=== PATIENT | male | born 1975 | race Caucasian/White ===

== ENCOUNTER → 2017-01-03 | Day surgery (SDC) | payer OTHER ==
[2017-01-01 15:13] LABS: HCT 40.2 % (42.0-52.0); MCHC 34.8 g/dL (32.0-36.0); MCV 86.3 fL (78.0-100.0); RBC 4.66 M/uL (4.70-6.00); RDW 12.8 % (11.5-14.0); WBC 6.4 K/uL (4.0-10.5)
[2017-01-01 15:27] LABS: ALBUMIN 4.1 g/dL (3.5-5.0); BILIRUBIN - TOTAL 0.7 mg/dL (0.1-1.0); CREATININE 0.8 mg/dL (0.7-1.2); GLOBULIN (CALCULATION) 2.9 g/dL (2.2-4.2); POTASSIUM 3.7 mmol/L (3.5-5.1)
[~2017-01-03] MED LIST: BENTYL20 MG PO; COLACE100 MG PO; LEVAQUIN750 MG PO; METRONIDAZOLE500 MG PO; NORCO 5-325 TA1 EACH PO; PHENERGAN25 M1 PO; PROBIOTIC1 EAC1 PO
== END | disposition home or self-care (01) ==
LOC: FAS 11:09
PROVIDERS: Orthopaedic Surgery
DX: M23.221 Derangement of posterior horn of medial meniscus due to old tear or injury, right knee (principal); M75.41 Impingement syndrome of right shoulder; M79.4 Hypertrophy of (infrapatellar) fat pad; E11.9 Type 2 diabetes mellitus without complications; Z88.0 Allergy status to penicillin; Z79.84 Long term (current) use of oral hypoglycemic drugs
CPT/HCPCS: 36415; 71020; 80053; 93005; J2704; J3010